=== PATIENT | female | born 1960 | race Caucasian/White ===

== ENCOUNTER 2016-11-17 16:34 | Emergency (ER) ==
--- NOTE | 2016-11-17 17:02 | PROVIDER DOCUMENTATION ---
HPI-Neurological Disorder - General Chief Complaint: Syncope Stated Complaint: syncope Time Seen by Provider: 11/17/16 16:53 Source: patient Allergies/Adverse Reactions: Patient Allergies Allergy/AdvReac Type Severity Reaction Status Date / Time No Known Allergies Allergy Verified 11/17/16 16:42 Home Medications: Home Medication List Medication Instructions Recorded Confirmed Last Taken Type Clindamycin [Cleocin] 300 mg PO RTQ8H #30 capsule 11/17/16 Unknown Rx Sulfamethoxazole/Trimethoprim 1 each PO BID #20 tablet 11/17/16 Unknown Rx [Bactrim Ds Tablet] - History of Present Illness-Neuro Nature of Presenting Problem: STATES, "I WAS AT MY DOCTORS GETTING SHOTS AND I PASSED OUT TWICE THERE. I WAS GETTING THEM SO I CAN GO TO [facility]." Vital Signs Temp Pulse Resp BP Pulse Ox 11/17/16 16:35 97.8 F 67 18 125/78 100 No Known Allergies Allergy (Verified 11/17/16 16:42) No Home Medications 11/17/16 I&O 11/16/16 11/17/16 11/18/16 06:59 06:59 06:59 Intake Total 250 Balance 250 Severity: reports: mild Onset/Duration: reports: just prior to arrival Timing: reports: gone now Context: reports: other ( "I WAS GETTING SHOTS [place] GO [place] AND I PASSED OUT. I ALWAYS DO THAT." HAS NOT EVER SOUGHT WORKUP. "I HAVE A NEEDLE PHOBIA.") Character of Altered Mental Status: reports: N/A Character of Deficits: denies: new weakness, altered sensation, vision problem/ glaucoma, impaired speech, impaired swallowing, decreased ability to stand, decreased ability to walk, falling New weakness or altered sensation location:: reports: none Cognitive Baseline: alert, oriented x3 Gait Baseline: walks without assistance Associated Symptoms: reports: denies symptoms Similar Symptoms Previously?: Yes ("I HAVE A NEEDLE PHOBIA." ) Recently seen or treated by another doctor?: Yes (PCP GETTING IZS FOR TRAVEL OUT OF THE COUNTRY) Review of Systems - Adult - REVIEW OF SYSTEMS - ADULT Constitutional: reports: see HPI Eyes: reports: no symptoms reported Ears, Nose, Mouth & Throat: reports: no symptoms reported Cardiovascular: reports: syncope Respiratory: reports: no symptoms reported Gastrointestinal: reports: no symptoms reported Genitourinary: reports: no symptoms reported Musculoskeletal: reports: other (ALSO, C/O RIGHT WRIST AND HAND PAIN --"IT'S BEEN HURTING FOR A FEW WEEKS. I HIT IT.") Integumentary: reports: no symptoms reported Neurological: reports: see HPI Psychiatric: reports: no symptoms reported Endocrine: reports: no symptoms reported Allergic/Immunologic: reports: no symptoms reported All Other Systems: Reviewed and Negative Past History - Adult - PAST MEDICAL HISTORY-ADULT Review of Records: reports: Nursing Assessment Review, Social history reviewed & non-contributory. Major Childhood Illnesses: reports: denies history Cardiovascular: reports: denies history Respiratory: reports: denies history Gastrointestinal: reports: denies history Obstetrical/Gynecological: reports: denies history Genitourinary: reports: denies history Musculoskeletal: reports: denies history Neurological: reports: denies history Psychiatric: reports: denies history Endocrine/Immune: reports: denies history Other Conditions: reports: denies history - PRIOR SURGERIES/PROCEDURES Surgical/Procedure History: reports: none - FAMILY HISTORY Family History: reviewed, not pertinent - SOCIAL HISTORY Smoking: denies Substance Use: none/never Alcohol Use Frequency: never Living Situation: family Physical Exam- Neurological - Physical Exam-Neuro Initial Vital Signs Reviewed: Yes General Appearance: appears well Eye Exam: bilateral eye: normal inspection, PERRL, EOMI HENMT: normocephalic/atraumatic, moist mucous membranes, normal ENT inspection Head Injury: no evidence of injury Neck: non-tender, full range of motion Respiratory: chest non-tender, lungs clear Cardiovascular: normal peripheral pulses, regular rate, rhythm, no edema, no murmur Abdominal Exam: normal bowel sounds Lymphatic: no adenopathy Peripheral Pulses: radial (R): 3+, radial (L): 3+ Extremity: normal range of motion, 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 negative: abnormal speech, facial asymmetry, facial droop, facial paresthesias, facial weakness, gaze palsy, hearing deficit (R), hearing deficit (L), tongue deviation to R, tongue deviation to L Coordination/Gait: normal finger to nose, negative Romberg's sign Motor/Sensory: no motor deficit, no sensory deficit, no pronator drift Neurologic: grossly normal, no motor/sensory deficits Integumentary: normal color, normal turgor, other (RIGHT UPPER ARM CELLULITIS QUARTER SIZED, TENDER "IT'S WHERE I GOT MY ALLERGY SHOT.") Psych/Mental Status: normal mood/affect - Glascow Coma Scale Best Eye Response: (4) open spontaneously Best Verbal Response: (5) oriented Best Motor Response: (6) obeys commands Progress - PLAN OF CARE/RESULTS Progress/Plan/Lab Results: Laboratory Tests 11/17/16 11/17/16 11/17/16 17:40 17:40 17:40 WBC 17.62 H RBC 4.52 Hgb 13.9 Hct 41.3 MCV 91.4 MCH 30.8 MCHC 33.7 RDW Std Deviation 12.7 Plt Count 356 MPV 10.0 Immature Gran % (Auto) 0.3 Neut % (Auto) 81.3 H Lymph % (Auto) 12.1 L Gillespie % (Auto) 5.9 Eos % (Auto) 0.3 Baso % (Auto) 0.1 Immature Gran # (Auto) 0.05 H Neut # (Auto) 14.32 H Lymph # (Auto) 2.13 Gillespie # (Auto) 1.04 H Eos # (Auto) 0.06 Baso # (Auto) 0.02 Sodium 140 Potassium 5.0 Chloride 101 Carbon Dioxide 26 Anion Gap 13 BUN 12 Creatinine 0.7 Estimated GFR/1.73 m2 > 60 BUN/Creatinine Ratio 17 Glucose 110 H Calculated Osmolality 280 Calcium 9.2 Total Bilirubin 0.24 AST 25 ALT 19 Alkaline Phosphatase 97 Total Protein 7.5 Albumin 4.4 Globulin 3.1 Albumin/Globulin Ratio 1.4 Urine Source CLEAN CATCH Urine Color STRAW Urine Turbidity CLEAR Urine pH 6.0 Ur Specific Thrall 1.005 Urine Protein NEGATIVE Ur Glucose (Stick) NEGATIVE Ur Ketones (Stick) NEGATIVE Urine Blood NEGATIVE Urine Nitrite NEGATIVE Urine Bilirubin NEGATIVE Urobilinogen Dipstick NORMAL Urine Leukocytes NEGATIVE Urine WBC (Auto) <10 Urine RBC (Auto) <10 U Epithel Cells (Auto) <10 Urine Bacteria (Auto) NEGATIVE Laboratory Tests 11/17/16 11/17/16 11/17/16 17:40 17:40 17:40 WBC 17.62 H RBC 4.52 Hgb 13.9 Hct 41.3 MCV 91.4 MCH 30.8 MCHC 33.7 RDW Std Deviation 12.7 Plt Count 356 MPV 10.0 Immature Gran % (Auto) 0.3 Neut % (Auto) 81.3 H Lymph % (Auto) 12.1 L Gillespie % (Auto) 5.9 Eos % (Auto) 0.3 Baso % (Auto) 0.1 Immature Gran # (Auto) 0.05 H Neut # (Auto) 14.32 H Lymph # (Auto) 2.13 Gillespie # (Auto) 1.04 H Eos # (Auto) 0.06 Baso # (Auto) 0.02 Sodium 140 Potassium 5.0 Chloride 101 Carbon Dioxide 26 Anion Gap 13 BUN 12 Creatinine 0.7 Estimated GFR/1.73 m2 > 60 BUN/Creatinine Ratio 17 Glucose 110 H Calculated Osmolality 280 Calcium 9.2 Total Bilirubin 0.24 AST 25 ALT 19 Alkaline Phosphatase 97 Total Protein 7.5 Albumin 4.4 Globulin 3.1 Albumin/Globulin Ratio 1.4 Urine Source CLEAN CATCH Urine Color STRAW Urine Turbidity CLEAR Urine pH 6.0 Ur Specific Thrall 1.005 Urine Protein NEGATIVE Ur Glucose (Stick) NEGATIVE Ur Ketones (Stick) NEGATIVE Urine Blood NEGATIVE Urine Nitrite NEGATIVE Urine Bilirubin NEGATIVE Urobilinogen Dipstick NORMAL Urine Leukocytes NEGATIVE Urine WBC (Auto) <10 Urine RBC (Auto) <10 U Epithel Cells (Auto) <10 Urine Bacteria (Auto) NEGATIVE ED Follow Up Instructions: You have been treated by a care provider in the Emergency Department. These instructions are being provided to you so you can have an understanding of how to care for yourself upon discharge. Upon discharge from the Emergency Department, you are responsible for making arrangements for follow-up care by a physician of your choice. Take all prescribed medications as directed. Return to the Emergency Department immediately for any new or worsening symptoms. You may call the Physician Referral phone number at [phone] to obtain a list of Physicians who are taking new patients. Vital Signs Temp Pulse Pulse Pulse Pulse Resp BP 11/17/16 17:53 71 61 54 L 11/17/16 16:35 97.8 F 67 18 125/78 BP BP BP Pulse Ox 11/17/16 17:53 126/66 126/59 120/58 11/17/16 16:35 100 No Known Allergies Allergy (Verified 11/17/16 16:42) No Home Medications 11/17/16 I&O 11/16/16 11/17/16 11/18/16 06:59 06:59 06:59 Intake Total 250 Balance 250 Laboratory 11/17/16 11/17/16 11/17/16 17:40 17:40 17:40 WBC 17.62 H RBC 4.52 Hgb 13.9 Hct 41.3 MCV 91.4 MCH 30.8 MCHC 33.7 RDW Std Deviation 12.7 Plt Count 356 MPV 10.0 Immature Gran % (Auto) 0.3 Neut % (Auto) 81.3 H Lymph % (Auto) 12.1 L Gillespie % (Auto) 5.9 Eos % (Auto) 0.3 Baso % (Auto) 0.1 Immature Gran # (Auto) 0.05 H Neut # (Auto) 14.32 H Lymph # (Auto) 2.13 Gillespie # (Auto) 1.04 H Eos # (Auto) 0.06 Baso # (Auto) 0.02 Sodium 140 Potassium 5.0 Chloride 101 Carbon Dioxide 26 Anion Gap 13 BUN 12 Creatinine 0.7 Estimated GFR/1.73 m2 > 60 BUN/Creatinine Ratio 17 Glucose 110 H Calculated Osmolality 280 Calcium 9.2 Total Bilirubin 0.24 AST 25 ALT 19 Alkaline Phosphatase 97 Total Protein 7.5 Albumin 4.4 Globulin 3.1 Albumin/Globulin Ratio 1.4 Urine Source CLEAN CATCH Urine Color STRAW Urine Turbidity CLEAR Urine pH 6.0 Ur Specific Thrall 1.005 Urine Protein NEGATIVE Ur Glucose (Stick) NEGATIVE Ur Ketones (Stick) NEGATIVE Urine Blood NEGATIVE Urine Nitrite NEGATIVE Urine Bilirubin NEGATIVE Urobilinogen Dipstick NORMAL Urine Leukocytes NEGATIVE Urine WBC (Auto) <10 Urine RBC (Auto) <10 U Epithel Cells (Auto) <10 Urine Bacteria (Auto) NEGATIVE CT HEAD AND NECK WNL, Departure - Departure Time of Disposition Order: 19:47 DIAGNOSIS: Syncope Qualifiers: Syncope type: unspecified Qualified Code(s): R55 - Syncope and collapse Cellulitis Qualifiers: Site of cellulitis: extremity Site of cellulitis of extremity: upper extremity Laterality: right Qualified Code(s): L03.113 - Cellulitis of right upper limb Disposition: HOME 01 Certified Medical Emergency: Emergent Condition: Stable Additional Instructions: TAKE ALL OF ANTIBIOTIC. FOLLOW UP WITH YOUR PCP FOR RECHECK. EAT YOUGERT WHILE TAKING ANTIBIOTICS. ED Follow Up Instructions: You have been treated by a care provider in the Emergency Department. These instructions are being provided to you so you can have an understanding of how to care for yourself upon discharge. Upon discharge from the Emergency Department, you are responsible for making arrangements for follow-up care by a physician of your choice. Take all prescribed medications as directed. Return to the Emergency Department immediately for any new or worsening symptoms. You may call the Physician Referral phone number at [phone] to obtain a list of Physicians who are taking new patients. Prescriptions: Sulfamethoxazole/Trimethoprim [Bactrim Ds Tablet] 1 each PO BID #20 tablet Clindamycin [Cleocin] 300 mg PO RTQ8H #30 capsule
[2016-11-17 17:52] LABS: URINE CULTURE NEEDED? NO; URINE MICRO REVIEW NEEDED? NO; URINE SOURCE CLEAN CATCH
[2016-11-17 17:54] VITALS: BP 120/58
[2016-11-17 17:55] LABS: MANUAL DIFF NEEDED? NO
--- NOTE | 2016-11-17 17:57 | Diag Imaging Result Document ---
PROCEDURE NAME: HEAD/C-SPINE W/O CONTRAST - 11/17/[address]: A CT dose reduction protocol was used. COMPARISON: None. FINDINGS: The ventricles and sulci are normal in size and contour. There is no mass, hemorrhage, or evidence of acute ischemia. The bony calvaria is intact. The visualized paranasal sinuses and mastoid air cells are clear. IMPRESSION: Negative head CT. CT CERVICAL SPINE: A CT dose reduction protocol was used. COMPARISON: None. FINDINGS: There are mild degenerative changes at C4-5, C5-6, and C6-7. No fracture or subluxation. Vertebral body heights and intervertebral disk spaces are preserved. IMPRESSION: No acute injury. [facility]
--- NOTE | 2016-11-17 18:05 | Diag Imaging Result Document ---
PROCEDURE NAME: CHEST-2 VIEWS - 11/17/2016 FRONTAL AND LATERAL CHEST, 2 VIEWS: The lungs are well expanded. The heart is not enlarged. The vessels are not distended. No pneumonia. No pleural effusions. There is granuloma in the mid right lung. IMPRESSION: No acute abnormality.
--- NOTE | 2016-11-17 18:06 | Diag Imaging Result Document ---
PROCEDURE NAME: HAND COMPLETE RIGHT - 11/17/2016 RIGHT HAND, 3 VIEWS: No fracture. No dislocation. IMPRESSION: No acute bony injury.
--- NOTE | 2016-11-17 18:07 | Diag Imaging Result Document ---
PROCEDURE NAME: WRIST COMPLETE RIGHT - 11/17/2016 RIGHT WRIST, 3 VIEWS FINDINGS: No fracture. No dislocation. IMPRESSION: No acute bony injury.
[2016-11-17 18:08] LABS: BASO% 0.1 % (0.0-0.8); EOS# 0.06 X1000 (0.0-0.7); EOS% 0.3 % (0.0-10.0); HEMATOCRIT 41.3 % (37.0-47.0); HEMOGLOBIN 13.9 g/dL (12.0-16.0); IMM GRAN# 0.05 X1000 (0.0-0.04); IMM GRAN% 0.3 % (0.0-0.5); LYMPH# 2.13 X1000 (1.2-3.4); LYMPH% 12.1 % (20.5-51.1); MCH 30.8 PG (27-31); MCHC 33.7 g/dL (33-37); MCV 91.4 FL (81-99); MONO# 1.04 X1000 (0.11-0.59); MONO% 5.9 % (1.7-9.3); NEUT% 81.3 % (42.2-75.2); PLT 356 X1000 (130-400); RBC 4.52 XMIL (4.2-5.4)
[2016-11-17 18:16] LABS: BILIRUBIN URINE NEGATIVE (NEGATIVE); BLOOD URINE NEGATIVE (NEGATIVE); COLOR STRAW; GLUCOSE URINE NEGATIVE (NEGATIVE); LEUKOCYTES URINE NEGATIVE (NEGATIVE); NITRITE URINE NEGATIVE (NEGATIVE); PROTEIN URINE NEGATIVE (NEGATIVE); SP GRAVITY URINE 1.005; TURBIDITY URINE CLEAR (CLEAR); UROBILINOGEN URINE NORMAL (NORMAL)
[2016-11-17 18:17] LABS: UR EPITHELIAL CELLS <10 /HPF (<10); URINE BACTERIA NEGATIVE /HPF; URINE RBC <10 /HPF (<10); URINE WBC <10 /HPF (<10)
[2016-11-17 18:31] LABS: AGAP 13; ALBUMIN 4.4 g/dL (3.5-5.0); ALKALINE PHOSPHATASE 97 U/L (32-104); BUN 12 mg/dL (8-22); CALCIUM 9.2 mg/dL (8.8-10.2); CHLORIDE 101 mmol/L (98-107); COSMO 280; GOT 25 U/L (10-30); GPT 19 U/L (10-36); SODIUM 140 mmol/L (136-145); TCO2 26 mmol/L (25-35); TOTAL BILIRUBIN 0.24 mg/dL (0.20-1.00); TOTAL PROTEIN 7.5 g/dL (6.3-8.3)
--- NOTE | 2016-11-18 07:45 | EKG Report ---
Test Performed on : 11/17/2016 5:37:59 PM Test Reason : SYNCOPE Blood Pressure : / mmHG Vent. Rate : 054 BPM Atrial Rate : 054 BPM P-R Int : 154 ms QRS Dur : 074 ms QT Int : 468 ms P-R-T Axes : 012 005 045 degrees QTc Int : 443 ms Sinus bradycardia. with sinus arrhythmia. Otherwise normal ECG No previous ECGs available Unconfirmed Result
== END 2016-11-17 20:06 | disposition home or self-care (01) ==
LOC: EDBD → ED 16:34
DX: R55 Syncope and collapse (principal); L03.113 Cellulitis of right upper limb; M25.531 Pain in right wrist; M79.641 Pain in right hand
CPT/HCPCS: 70450; 71020; 72125; 80053; 81001; 85025; 93005